=== PATIENT | male | born 1980 | race African-American/Black ===

== ENCOUNTER 2017-06-28 15:57 | Emergency (ER) | payer BC ==
--- NOTE | 2017-06-28 16:01 | PDOC ---
Rapid Medical Evaluation Time Seen by Provider: 06/28/17 15:59 Medical Evaluation: Allergies Allergy/AdvReac Type Severity Reaction Status Date / Time No Known Drug Allergies Allergy Verified 09/06/15 09:54 [place]ZELNUT Allergy Uncoded 09/06/15 09:54 06/28/17 15:59 I have performed a brief in person evaluation of this patient. The patient presents with chief complaint of : 2 weeks painful urination and discomfort , denies discharge Pertinent PE findings:none I have ordered the following: urinalysis, urine culture, GC/chlamydia The patient will proceed to the ER for further evaluation.
[2017-06-28 16:03] VITALS: BP 148/97; PULSE 93; TEMP 98.7; BMI 32.8
[2017-06-28 17:39] LABS: URINE APPEARANCE SLCLOUDY; URINE BILIRUBIN NEGATIVE (NEGATIVE); URINE BLOOD NEGATIVE (NEGATIVE); URINE COLOR YELLOW; URINE GLUCOSE (UA) NEGATIVE (NEGATIVE); URINE KETONE NEGATIVE (NEGATIVE); URINE NITRITE NEGATIVE (NEGATIVE); URINE PROTEIN NEGATIVE (NEGATIVE); URINE UROBILINOGEN NEGATIVE mg/dL (0.2-1.0)
--- NOTE | 2017-06-28 18:09 | PDOC ---
History of Present Illness - General History Source: Patient Exam Limitations: No Limitations - History of Present Illness Initial Comments: 06/28/17 18:09 The patient is a 37 year old male with no significant PMH who presents to the emergency department with irritation after urinating. The patient reports that he has not seen any urinary discharge or lesions. The patient denies dysuria, frequency, urgency, hematuria, and testicular pain. The patient denies fever, cough, and chills. The patient was here today for chlamydia and gonorrhea testing. The patient denies any HIV or other STD testing today. Allergies: NKA Past surgical history: None reported. Social history: No reported alcohol, drug, or cigarette use. PCP: Dr. Ray <Teresa Perry - Last Filed: 06/28/17 18:09> <Christine Sanford - Last Filed: 06/28/17 18:47> - General Chief Complaint: Urinary Problem Stated Complaint: BURNING ON URINATION Time Seen by Provider: 06/28/17 15:59 Past History <Teresa Perry - Last Filed: 06/28/17 18:09> - Past Medical History Anemia: No COPD: No Other medical history: DENIES. - Surgical History Abdominal Surgery: No - Suicide/Smoking/Psychosocial Hx Smoking Status: No Smoking History: Never smoked Number of Cigarettes Smoked Daily: 0 Hx Alcohol Use: No Drug/Substance Use Hx: No Substance Use Type: None <Christine Sanford - Last Filed: 06/28/17 18:47> - Past Medical History Allergies/Adverse Reactions: Allergies Allergy/AdvReac Type Severity Reaction Status Date / Time No Known Drug Allergies Allergy Verified 06/28/17 16:00 [place]ZELNUT Allergy Uncoded 06/28/17 16:00 Home Medications: Ambulatory Orders NK [No Known Home Medication] 06/28/17 Review of Systems - Review of Systems Able to Perform ROS?: Yes Comments:: 06/28/17 18:28 GENERAL/CONSTITUTIONAL: No fever or chills. No weakness. HEAD, EYES, EARS, NOSE AND THROAT: No change in vision. No ear pain or discharge. No sore throat. CARDIOVASCULAR: No chest pain or shortness of breath. RESPIRATORY: No cough, wheezing, or hemoptysis. GASTROINTESTINAL: No nausea, vomiting, diarrhea or constipation. GENITOURINARY: (+) Irritation after urinating. No dysuria, frequency, or change in urination. MUSCULOSKELETAL: No joint or muscle swelling or pain. No neck or back pain. SKIN: No rash NEUROLOGIC: No headache, vertigo, loss of consciousness, or change in strength/ sensation. ENDOCRINE: No increased thirst. No abnormal weight change. HEMATOLOGIC/LYMPHATIC: No anemia, easy bleeding, or history of blood clots. ALLERGIC/IMMUNOLOGIC: No hives or skin allergy. <Teresa Perry - Last Filed: 06/28/17 18:09> *Physical Exam - Vital Signs Last Vital Signs Temp Pulse Resp BP Pulse Ox 98.7 F 93 H 19 148/97 98 06/28/17 16:00 06/28/17 16:00 06/28/17 16:00 06/28/17 16:00 06/28/17 16:00 - Physical Exam Comments: 06/28/17 18:29 GENERAL: Awake, alert, and fully oriented, in no acute distress HEAD: No signs of trauma EYES: PERRLA, EOMI, sclera anicteric, conjunctiva clear ENT: Auricles normal inspection, hearing grossly normal, nares patent, oropharynx clear without exudates. Moist mucosa NECK: Normal ROM, supple, no lymphadenopathy, JVD, or masses LUNGS: Breath sounds equal, clear to auscultation bilaterally. No wheezes, and no crackles HEART: Regular rate and rhythm, normal S1 and S2, no murmurs, rubs or gallops ABDOMEN: Soft, nontender, normoactive bowel sounds. No guarding, no rebound. No masses GENITOURINARY: No discharge. Normal exam. EXTREMITIES: Normal range of motion, no edema. No clubbing or cyanosis. No cords, erythema, or tenderness NEUROLOGICAL: Cranial nerves II through XII grossly intact. Normal speech, normal gait SKIN: Warm, Dry, normal turgor, no rashes or lesions noted. <Teresa Perry - Last Filed: 06/28/17 18:09> - Vital Signs Last Vital Signs Temp Pulse Resp BP Pulse Ox 98.7 F 93 H 19 148/97 98 06/28/17 16:00 06/28/17 16:00 06/28/17 16:00 06/28/17 16:00 06/28/17 16:00 <Christine Sanford - Last Filed: 06/28/17 18:47> *DC/Admit/Observation/Transfer - Attestations Scribe Attestion: 06/28/17 18:32 Documentation prepared by Teresa Perry, acting as medical physics researcher for Hung Moya MD. <Teresa Perry - Last Filed: 06/28/17 18:09> - Discharge Dispostion Admit: No <Christine Sanford - Last Filed: 06/28/17 18:47> Diagnosis at time of Disposition: Dysuria, Possible exposure to STD - Discharge Dispostion Disposition: HOME Condition at time of disposition: Good - Referrals Referrals: [facility] [Primary Care Provider] - - Patient Instructions Printed Discharge Instructions: Facts About Sexually Transmitted Infections Additional Instructions: Your urine today was negative for infection. You were also tested for gonorrhea and chlamydia. Your results should be available in 2-3 days. You were treated to day for gonorrhea and chlamydia exposure. Always have protected sex. Return to the ED if you have worsening pain, dysuria, fevers, discharge or any changes in your symptoms. - Post Discharge Activity Forms/Work/School Notes: Back to Work
[2017-06-28] MEDS ORDERED: AZITHROMYCIN 500 MG TABLET ONE (18:10)
[2017-06-28] MEDS ORDERED: AZITHROMYCIN 500 MG TABLET PO ONE (18:10)
[2017-06-28 21:54] LABS: URINE LEUK ESTERASE Negative (NEGATIVE)
== END 2017-06-28 18:49 | disposition home or self-care (01) ==
LOC: JERFT 15:57
DX: R30.0 Dysuria (principal); Z11.3 Encounter for screening for infections with a predominantly sexual mode of transmission
CPT/HCPCS: 36415; 81003; 87086; 87491; 87591; 99281-25